=== PATIENT | male | born 1985 | race Caucasian/White ===

== ENCOUNTER 2016-10-08 15:05 | Emergency (ER) | payer OTHER ==
[~2016-10-08] VITALS: Ht 172.7 cm; Wt 86.9 kg
[~2016-10-08 15:05] MED LIST: BACLOFEN20 MG PO; BENZTROPINE ME0.5 MG PO; CLARITIN10 M3 PO; ESSENTIAL DAIL1 EACH PO; HALDOL1 MG PO; KEPPRA1000 MG PO; KEPPRA500 MG PO; MAALOX ADVANCE355 ML PO; MOBIC15 MG PO; NAPROSYN375 MG PO; NAPROSYN500 MG PO; NEURONTIN800 MG PO; NO HOME MEDS; PRILOSEC20 MG PO; VISTARIL25 MG PO; VISTARIL50 MG PO; [UNRECOGNIZED DRUG - OTHER] PO
[2016-10-08 16:23] LABS: EOSINOPHIL (%) 1.4 % (0-5); EOSINOPHIL COUNT 0.1 K/uL (0-0.3); HEMATOCRIT 44.3 % (38.0-50.0); IMMATURE GRANULOCYTE (%) 0.3 % (0.0-0.7); IMMATURE GRANULOCYTE COUNT 0.3 K/uL; LYMPHOCYTE COUNT 1.7 K/uL (1.0-2.8); MCH 30.3 PG (29.0-34.0); MCV 86.5 FL (86-99); MEAN PLAT.VOLUME 9.6 uM^3 (9.0-12.4); MONOCYTE (%) 6.6 % (3-12); MONOCYTE COUNT 0.6 K/uL (0-0.8); NEUTROPHIL (%) 74.1 % (45-76); NEUTROPHIL COUNT 7.2 K/uL (1.8-6.4); PLATELET COUNT 196 K/uL (156-360); RBC DIS.WIDTH-CV 13.5 % (11.8-14.6); RBC DIS.WIDTH-SD 41.6 % (39-53); RED BLOOD COUNT 5.12 M/uL (4.00-5.50); WHITE BLOOD COUNT 9.8 K/uL (4.1-10.2)
[2016-10-08 16:31] LABS: CHLORIDE 108 mEq/L (99-109); POTASSIUM 4.7 mEq/L (3.7-5.4); SODIUM 142 mEq/L (136-147)
[2016-10-08 16:33] LABS: GLUCOSE 94 mg/dL (70-99); INTER. NORMALIZED RATIO 1.1; PROTHROMBIN TIME 11.3 (9.2-11.2); PTT 24.5 (25-32)
[2016-10-08 16:34] LABS: ANION GAP 9 MEQ/L (2-14)
[2016-10-08 16:37] LABS: GFR ESTIMATE (CALCULATED) > 59 mL/min/
[2016-10-08 16:38] LABS: UREA NITROGEN (BUN) 14 mg/dL (9-23)
[2016-10-08] MEDS ORDERED: ASPIR-LOW81 MG PO (16:52)
[2016-10-08 17:21] VITALS: BP 127/84
== END 2016-10-08 17:22 ==
LOC: EME 15:05
PROVIDERS: Physician Assistant
DX: S93.401A Sprain of unspecified ligament of right ankle, initial encounter (principal); X50.9XXA Other and unspecified overexertion or strenuous movements or postures, initial encounter; Y92.143 Cell of prison as the place of occurrence of the external cause; Z87.891 Personal history of nicotine dependence
CPT/HCPCS: 73610; 80048; 85025; 85610; 85730; 99281; 99284; J1885

== ENCOUNTER 2016-11-12 09:07 | Emergency (ER) | payer OTHER ==
[~2016-11-12] VITALS: Ht 170.2 cm; Wt 97.5 kg
[~2016-11-12 09:07] MED LIST changes: +ASPIR-LOW81 MG PO
[2016-11-12 09:49] LABS: EOSINOPHIL (%) 1.9 % (0-5); EOSINOPHIL COUNT 0.1 K/uL (0-0.3); HEMATOCRIT 41.8 % (38.0-50.0); IMMATURE GRANULOCYTE (%) 0.8 % (0.0-0.7); IMMATURE GRANULOCYTE COUNT 0.1 K/uL; INSTRUMENT ABS NEUTROPHIL CT 4.2 K/uL; LYMPHOCYTE COUNT 1.2 K/uL (1.0-2.8); MCH 30.5 PG (29.0-34.0); MCHC 33.5 G/DL (30.0-36.0); MCV 91.1 FL (86-99); MEAN PLAT.VOLUME 9.8 uM^3 (9.0-12.4); MONOCYTE COUNT 0.6 K/uL (0-0.8); NEUTROPHIL (%) 67.9 % (45-76); NEUTROPHIL COUNT 4.2 K/uL (1.8-6.4); PLATELET COUNT 173 K/uL (156-360); RBC DIS.WIDTH-CV 12.9 % (11.8-14.6); RBC DIS.WIDTH-SD 42.4 % (39-53); RED BLOOD COUNT 4.59 M/uL (4.00-5.50); WHITE BLOOD COUNT 6.2 K/uL (4.1-10.2)
[2016-11-12] MEDS ORDERED: DEPAKOTE500 MG PO ×2 (10:06)
[2016-11-12] MEDS ORDERED: CATAPRES0.1 MG PO (10:07)
[2016-11-12] MEDS ORDERED: VISTARIL50 MG PO (10:07)
[2016-11-12] MEDS ORDERED: HALDOL5 MG PO (10:08)
[2016-11-12 10:24] LABS: CHLORIDE 110 mEq/L (99-109); POTASSIUM 4.4 mEq/L (3.7-5.4); SODIUM 144 mEq/L (136-147)
[2016-11-12 10:27] LABS: GLUCOSE 88 mg/dL (70-99)
[2016-11-12 10:28] LABS: ANION GAP 10 MEQ/L (2-14); TOTAL BILIRUBIN 0.2 mg/dL (0.0-1.0)
[2016-11-12 10:29] LABS: SERUM ETHYL ALCOHOL < 10 mg/dL
[2016-11-12 10:30] LABS: GFR ESTIMATE (CALCULATED) > 59 mL/min/
[2016-11-12 10:31] LABS: ALKALINE PHOSPHATASE 35 IU/L (3-129)
[2016-11-12 10:32] LABS: DIRECT BILIRUBIN 0.1 mg/dL (0.0-0.3); UREA NITROGEN (BUN) 8 mg/dL (9-23)
[2016-11-12 10:34] LABS: SALICYLATE < 5.0 MG/DL (15-30)
[2016-11-12 11:23] LABS: ADD MIUA? NO; BILIRUBIN NEGATIVE; BLOOD NEGATIVE; COLOR STRAW ((YELLOW)); GLUCOSE (STRIP) NEGATIVE; KETONES NEGATIVE; LEUKOCYTES NEGATIVE; NITRITE NEGATIVE; PROTEIN (STRIP) NEGATIVE; SPECIFIC GRAVITY 1.008 (1.000-1.030); UROBILINOGEN 0.2 MG/DL (0.2-1.0)
[2016-11-12 11:32] LABS: AMPHETAMINE NEGATIVE (500 ng/mL); BARBITURATES NEGATIVE (200 ng/mL); BENZODIAZEPINES NEGATIVE (150 ng/mL); COCAINE NEGATIVE (150 ng/mL); INTERNAL CONTROLS VALID? YES; METHADONE NEGATIVE (200 ng/mL); METHAMPHETAMINE NEGATIVE (500 ng/mL); OPIATES (MORPHINE) NEGATIVE (100 ng/mL); OXYCODONE NEGATIVE (100 ng/mL); PHENCYCLIDINE NEGATIVE (25 ng/mL); PROPOXYPHENE NEGATIVE (300 ng/mL); THC CANNABINOIDS NEGATIVE (50 ng/mL); TRICYCLIC ANTIDEPRESSANTS NEGATIVE (300 ng/mL)
[2016-11-12 14:13] VITALS: BP 127/89
== END 2016-11-12 14:16 ==
LOC: EME → EDBD 09:07 → EME 09:07
PROVIDERS: Emergency Medicine
DX: G40.909 Epilepsy, unspecified, not intractable, without status epilepticus (principal); Z87.891 Personal history of nicotine dependence
CPT/HCPCS: 70450; 71010; 80048; 80076; 80164; 81003; 85025; 93005; 99281; 99284; G0480; J2060

== ENCOUNTER 2016-12-13 08:46 | Emergency (ER) | payer OTHER ==
[~2016-12-13] VITALS: Ht 172.7 cm; Wt 93.0 kg
[~2016-12-13 08:46] MED LIST changes: +CATAPRES0.1 MG PO; +DEPAKOTE500 MG PO; +HALDOL5 MG PO
[2016-12-13 10:08] LABS: BASOPHIL COUNT 0.1 K/uL (0-0.1); EOSINOPHIL (%) 0.6 % (0-5); EOSINOPHIL COUNT 0.1 K/uL (0-0.3); HEMATOCRIT 41.9 % (38.0-50.0); IMMATURE GRANULOCYTE (%) 0.3 % (0.0-0.7); INSTRUMENT ABS NEUTROPHIL CT 7.1 K/uL; LYMPHOCYTE COUNT 1.8 K/uL (1.0-2.8); MCH 30.5 PG (29.0-34.0); MCHC 34.6 G/DL (30.0-36.0); MCV 88.2 FL (86-99); MEAN PLAT.VOLUME 9.3 uM^3 (9.0-12.4); MONOCYTE (%) 8.2 % (3-12); MONOCYTE COUNT 0.8 K/uL (0-0.8); NEUTROPHIL (%) 72.4 % (45-76); NEUTROPHIL COUNT 7.1 K/uL (1.8-6.4); PLATELET COUNT 197 K/uL (156-360); RBC DIS.WIDTH-CV 12.5 % (11.8-14.6); RBC DIS.WIDTH-SD 40.5 % (39-53); RED BLOOD COUNT 4.75 M/uL (4.00-5.50); WHITE BLOOD COUNT 9.8 K/uL (4.1-10.2)
[2016-12-13 10:12] LABS: ADD MIUA? NO; BILIRUBIN NEGATIVE; BLOOD NEGATIVE; COLOR YELLOW ((YELLOW)); GLUCOSE (STRIP) NEGATIVE; KETONES NEGATIVE; LEUKOCYTES NEGATIVE; NITRITE NEGATIVE; PROTEIN (STRIP) NEGATIVE; SPECIFIC GRAVITY 1.015 (1.000-1.030); UROBILINOGEN 0.2 MG/DL (0.2-1.0)
[2016-12-13 10:17] LABS: CHLORIDE 109 mEq/L (99-109); POTASSIUM 4.2 mEq/L (3.7-5.4); SODIUM 140 mEq/L (136-147)
[2016-12-13 10:19] LABS: GLUCOSE 90 mg/dL (70-99)
[2016-12-13 10:20] LABS: ANION GAP 11 MEQ/L (2-14)
[2016-12-13 10:22] LABS: SERUM ETHYL ALCOHOL < 10 mg/dL
[2016-12-13 10:23] LABS: GFR ESTIMATE (CALCULATED) > 59 mL/min/; UREA NITROGEN (BUN) 12 mg/dL (9-23)
[2016-12-13 10:35] LABS: AMPHETAMINE NEGATIVE (500 ng/mL); BARBITURATES NEGATIVE (200 ng/mL); BENZODIAZEPINES NEGATIVE (150 ng/mL); COCAINE NEGATIVE (150 ng/mL); INTERNAL CONTROLS VALID? YES; METHADONE NEGATIVE (200 ng/mL); METHAMPHETAMINE NEGATIVE (500 ng/mL); OPIATES (MORPHINE) NEGATIVE (100 ng/mL); OXYCODONE NEGATIVE (100 ng/mL); PHENCYCLIDINE NEGATIVE (25 ng/mL); PROPOXYPHENE NEGATIVE (300 ng/mL); THC CANNABINOIDS NEGATIVE (50 ng/mL); TRICYCLIC ANTIDEPRESSANTS NEGATIVE (300 ng/mL)
[2016-12-13 12:18] VITALS: BP 129/82
== END 2016-12-13 12:25 ==
LOC: EME → EDBD 08:46 → EME 08:46
PROVIDERS: Emergency Medicine
DX: T40.1X1A Poisoning by heroin, accidental (unintentional), initial encounter (principal); Z87.891 Personal history of nicotine dependence
CPT/HCPCS: 70450; 80048; 81003; 85025; 99281; 99283; G0480

== ENCOUNTER 2017-02-07 11:02 | Emergency (ER) | payer OTHER ==
[~2017-02-07] VITALS: Ht 172.7 cm; Wt 100.5 kg
[2017-02-07 11:39] LABS: EOSINOPHIL (%) 0.6 % (0-5); EOSINOPHIL COUNT 0.1 K/uL (0-0.3); HEMATOCRIT 44.1 % (38.0-50.0); IMMATURE GRANULOCYTE (%) 0.4 % (0.0-0.7); INSTRUMENT ABS NEUTROPHIL CT 6.8 K/uL; LYMPHOCYTE COUNT 1.4 K/uL (1.0-2.8); MCH 29.7 PG (29.0-34.0); MCHC 34.9 G/DL (30.0-36.0); MONOCYTE (%) 6.6 % (3-12); MONOCYTE COUNT 0.6 K/uL (0-0.8); NEUTROPHIL COUNT 6.8 K/uL (1.8-6.4); PLATELET COUNT 220 K/uL (156-360); RBC DIS.WIDTH-CV 11.1 % (11.8-14.6); RBC DIS.WIDTH-SD 34.3 % (39-53); RED BLOOD COUNT 5.19 M/uL (4.00-5.50)
[2017-02-07 11:48] LABS: CHLORIDE 108 mEq/L (99-109); POTASSIUM 4.1 mEq/L (3.7-5.4); SODIUM 139 mEq/L (136-147)
[2017-02-07 11:50] LABS: GLUCOSE 101 mg/dL (70-99)
[2017-02-07 11:51] LABS: ANION GAP 10 MEQ/L (2-14)
[2017-02-07 11:54] LABS: GFR ESTIMATE (CALCULATED) > 59 mL/min/
[2017-02-07 11:55] LABS: UREA NITROGEN (BUN) 10 mg/dL (9-23)
[2017-02-07 14:12] LABS: AMPHETAMINE NEGATIVE (500 ng/mL); BARBITURATES NEGATIVE (200 ng/mL); BENZODIAZEPINES NEGATIVE (150 ng/mL); COCAINE NEGATIVE (150 ng/mL); INTERNAL CONTROLS VALID? YES; METHADONE NEGATIVE (200 ng/mL); METHAMPHETAMINE NEGATIVE (500 ng/mL); OPIATES (MORPHINE) NEGATIVE (100 ng/mL); OXYCODONE NEGATIVE (100 ng/mL); PHENCYCLIDINE NEGATIVE (25 ng/mL); PROPOXYPHENE NEGATIVE (300 ng/mL); THC CANNABINOIDS NEGATIVE (50 ng/mL); TRICYCLIC ANTIDEPRESSANTS NEGATIVE (300 ng/mL)
[2017-02-07 14:13] LABS: ADD MIUA? NO; BILIRUBIN NEGATIVE; BLOOD NEGATIVE; COLOR STRAW ((YELLOW)); GLUCOSE (STRIP) NEGATIVE; KETONES NEGATIVE; LEUKOCYTES NEGATIVE; NITRITE NEGATIVE; PROTEIN (STRIP) NEGATIVE; SPECIFIC GRAVITY 1.009 (1.000-1.030); UROBILINOGEN 0.2 MG/DL (0.2-1.0)
[2017-02-07 16:19] VITALS: BP 132/94
== END 2017-02-07 16:27 ==
LOC: EME 11:02
PROVIDERS: Emergency Medicine
DX: G40.909 Epilepsy, unspecified, not intractable, without status epilepticus (principal); K21.9 Gastro-esophageal reflux disease without esophagitis; Z87.891 Personal history of nicotine dependence
CPT/HCPCS: 70450; 80048; 80164; 81003; 85025; 93005; 99281; 99285; J2060

== ENCOUNTER 2017-03-15 21:04 | Emergency (ER) | payer OTHER ==
[~2017-03-15] VITALS: Ht 172.7 cm; Wt 98.6 kg
[2017-03-15 21:51] LABS: HEMATOCRIT 41.8 % (38.0-50.0); MCH 28.7 PG (29.0-34.0); MCHC 34.4 G/DL (30.0-36.0); MCV 83.4 FL (86-99); MEAN PLAT.VOLUME 9.3 uM^3 (9.0-12.4); PLATELET COUNT 251 K/uL (156-360); RBC DIS.WIDTH-CV 11.9 % (11.8-14.6); RBC DIS.WIDTH-SD 35.6 % (39-53); RED BLOOD COUNT 5.01 M/uL (4.00-5.50); WHITE BLOOD COUNT 9.1 K/uL (4.1-10.2)
[2017-03-15 23:05] LABS: ANION GAP 13 MEQ/L (2-14); CHLORIDE 109 MEQ/L (99-109); SAMPLE HEMOLYSIS CHECK 0; SAMPLE ICTERIC CHECK 0; SAMPLE LIPEMIA CHECK 0; SODIUM 141 MEQ/L (136-147)
[2017-03-15 23:22] LABS: GFR ESTIMATE (CALCULATED) > 59 mL/min/; GLUCOSE 79 mg/dL (70-99); UREA NITROGEN (BUN) 14 mg/dL (9-23)
[2017-03-15 23:57] LABS: SERUM ETHYL ALCOHOL < 10 mg/dL
[2017-03-15 23:58] VITALS: BP 125/85
[2017-03-19] MEDS ORDERED: ZOFRAN ODT4 MG PO (13:24)
== END 2017-03-16 00:06 ==
LOC: EME 21:04
PROVIDERS: Emergency Medicine
DX: R10.9 Unspecified abdominal pain (principal); R45.851 Suicidal ideations; K21.9 Gastro-esophageal reflux disease without esophagitis; F32.9 Major depressive disorder, single episode, unspecified; Z87.891 Personal history of nicotine dependence
CPT/HCPCS: 71010; 74000; 80048; 85027; 93005; 99281; 99284; G0480

== ENCOUNTER → 2017-03-19 | Emergency (ER) | payer OTHER ==
[~2017-03-19] VITALS: Ht 172.7 cm; Wt 93.2 kg
[~2017-03-19] MED LIST changes: +ZOFRAN ODT4 MG PO
[2017-03-19 11:41] LABS: EOSINOPHIL (%) 0 % (0-5); HEMATOCRIT 45.4 % (38.0-50.0); IMMATURE GRANULOCYTE (%) 0.5 % (0.0-0.7); IMMATURE GRANULOCYTE COUNT 0.1 K/uL; INSTRUMENT ABS NEUTROPHIL CT 13.2 K/uL; LYMPHOCYTE COUNT 0.7 K/uL (1.0-2.8); MCH 28.2 PG (29.0-34.0); MCHC 33.9 G/DL (30.0-36.0); MEAN PLAT.VOLUME 9.6 uM^3 (9.0-12.4); MONOCYTE (%) 4.5 % (3-12); MONOCYTE COUNT 0.7 K/uL (0-0.8); NEUTROPHIL (%) 90.1 % (45-76); NEUTROPHIL COUNT 13.2 K/uL (1.8-6.4); PLATELET COUNT 311 K/uL (156-360); RBC DIS.WIDTH-SD 36.3 % (39-53); RED BLOOD COUNT 5.47 M/uL (4.00-5.50); WHITE BLOOD COUNT 14.6 K/uL (4.1-10.2)
[2017-03-19 11:50] LABS: CHLORIDE 106 mEq/L (99-109); POTASSIUM 3.7 mEq/L (3.7-5.4); SODIUM 140 mEq/L (136-147)
[2017-03-19 11:51] LABS: MAGNESIUM 1.8 mg/dL (1.3-2.7)
[2017-03-19 11:53] LABS: GLUCOSE 132 mg/dL (70-99)
[2017-03-19 11:54] LABS: ANION GAP 15 MEQ/L (2-14)
[2017-03-19 11:55] LABS: TOTAL BILIRUBIN 0.4 mg/dL (0.0-1.0)
[2017-03-19 11:56] LABS: ALKALINE PHOSPHATASE 40 IU/L (3-129); GFR ESTIMATE (CALCULATED) > 59 mL/min/
[2017-03-19 11:57] LABS: UREA NITROGEN (BUN) 9 mg/dL (9-23)
[2017-03-19 13:00] VITALS: BP 174/96
== END ==
LOC: EME 10:58
PROVIDERS: Emergency Medicine
DX: R11.2 Nausea with vomiting, unspecified (principal); R19.7 Diarrhea, unspecified; Z87.891 Personal history of nicotine dependence
CPT/HCPCS: 80053; 83735; 85025; 93005; 99281; 99284; J2405; J7030

== ENCOUNTER 2017-11-21 00:46 | Emergency (ER) | payer OTHER ==
[~2017-11-21] VITALS: Ht 172.7 cm; Wt 64.0 kg
[2017-11-21] MEDS ORDERED: TYLENOL W/COD1 COMB1 PO (00:59)
[2017-11-21] MEDS ORDERED: TEGRETOL200 MG PO (01:00)
[2017-11-21 01:42] VITALS: BP 115/67
[2017-11-22] MEDS ORDERED: ZOFRAN4 MG PO (07:48)
== END 2017-11-21 01:44 | disposition home or self-care (01) ==
LOC: EME 00:46
DX: F11.10 Opioid abuse, uncomplicated (principal); G40.909 Epilepsy, unspecified, not intractable, without status epilepticus; F17.200 Nicotine dependence, unspecified, uncomplicated
CPT/HCPCS: 99281; 99283

== ENCOUNTER 2017-11-21 12:34 | Emergency (ER) | payer OTHER ==
[~2017-11-21] VITALS: Ht 172.7 cm; Wt 83.6 kg
[~2017-11-21 12:34] MED LIST changes: +TEGRETOL200 MG PO; +TYLENOL W/COD1 COMB1 PO
[2017-11-21 13:11] LABS: BASOPHIL (%) 0.3 % (0-1); EOSINOPHIL (%) 0.1 % (0-5); HEMATOCRIT 46.9 % (38.0-50.0); HEMOGLOBIN 15.5 G/DL (12.5-16.6); IMMATURE GRANULOCYTE (%) 0.5 % (0.0-0.7); LYMPHOCYTE (%) 9.5 % (15-42); LYMPHOCYTE COUNT 1.4 K/uL (1.0-2.8); MCH 28.6 PG (29.0-34.0); MCV 86.5 FL (86-99); MONOCYTE (%) 7.2 % (3-12); MONOCYTE COUNT 1.1 K/uL (0-0.8); NEUTROPHIL (%) 82.4 % (45-76); NEUTROPHIL COUNT 12.1 K/uL (1.8-6.4); PLATELET COUNT 274 K/uL (156-360); RBC DIS.WIDTH-CV 13.8 % (11.8-14.6); RBC DIS.WIDTH-SD 43.4 % (39-53); RED BLOOD COUNT 5.42 M/uL (4.00-5.50); WHITE BLOOD COUNT 14.7 K/uL (4.1-10.2)
[2017-11-21 13:24] LABS: ALBUMIN 4.6 g/dL (3.2-4.8); CHLORIDE 104 mEq/L (99-109); POTASSIUM 3.8 mEq/L (3.7-5.4); SODIUM 139 mEq/L (136-147)
[2017-11-21 13:26] LABS: GLUCOSE 88 mg/dL (70-99); TOTAL PROTEIN 7.4 g/dL (6.4-8.3)
[2017-11-21 13:28] LABS: TOTAL BILIRUBIN 0.7 mg/dL (0.0-1.0)
[2017-11-21 13:29] LABS: SERUM ETHYL ALCOHOL < 10 mg/dL
[2017-11-21 13:30] LABS: CREATININE 1.2 mg/dL (0.6-1.3); GFR ESTIMATE (CALCULATED) > 59 mL/min/ (58.99-99999)
[2017-11-21 13:31] LABS: ALKALINE PHOSPHATASE 43 IU/L (3-129)
[2017-11-21 13:32] LABS: AST (GOT) 19 IU/L (2-34); UREA NITROGEN (BUN) 13 mg/dL (9-23)
[2017-11-21 13:33] LABS: SALICYLATE < 5.0 MG/DL (15-30)
[2017-11-21 13:34] LABS: ACETAMINOPHEN (TYLENOL) < 10 mcg/mL (10-30); ALT (GPT) 17 IU/L (3-49)
[2017-11-21 20:48] VITALS: BP 121/71
[2017-11-22] MEDS ORDERED: ZOFRAN4 MG PO (07:48)
== END 2017-11-21 20:52 | disposition home or self-care (01) ==
LOC: EME 12:34
PROVIDERS: Emergency Medicine
DX: T40.3X1A Poisoning by methadone, accidental (unintentional), initial encounter (principal); F32.9 Major depressive disorder, single episode, unspecified; F60.2 Antisocial personality disorder; F11.99 Opioid use, unspecified with unspecified opioid-induced disorder; F17.200 Nicotine dependence, unspecified, uncomplicated; K21.9 Gastro-esophageal reflux disease without esophagitis; F41.9 Anxiety disorder, unspecified; Z88.6 Allergy status to analgesic agent
CPT/HCPCS: 80053; 81003; 85025; 90839; 93005; 99281; 99285; G0480

== ENCOUNTER 2017-11-22 05:18 | Emergency (ER) | payer OTHER ==
[~2017-11-22] VITALS: Ht 172.7 cm; Wt 80.7 kg
[2017-11-22 06:26] LABS: HEMATOCRIT 47.4 % (38.0-50.0); HEMOGLOBIN 15.7 G/DL (12.5-16.6); MCH 28.2 PG (29.0-34.0); MCHC 33.1 G/DL (30.0-36.0); MCV 85.3 FL (86-99); PLATELET COUNT 283 K/uL (156-360); RBC DIS.WIDTH-SD 43.9 % (39-53); RED BLOOD COUNT 5.56 M/uL (4.00-5.50); WHITE BLOOD COUNT 13.9 K/uL (4.1-10.2)
[2017-11-22 06:38] LABS: CHLORIDE 104 mEq/L (99-109); SODIUM 141 mEq/L (136-147)
[2017-11-22 06:43] LABS: GLUCOSE 114 mg/dL (70-99); SERUM ETHYL ALCOHOL < 10 mg/dL
[2017-11-22 06:44] LABS: CREATININE 1.3 mg/dL (0.6-1.3); GFR ESTIMATE (CALCULATED) > 59 mL/min/ (58.99-99999)
[2017-11-22 06:45] LABS: UREA NITROGEN (BUN) 19 mg/dL (9-23)
[2017-11-22 07:23] LABS: CARBAMAZEPINE (TEGRETOL) < 2.0 MCG/ML (4.0-12.0)
[2017-11-22] MEDS ORDERED: ZOFRAN4 MG PO (07:48)
[2017-11-22 09:21] VITALS: BP 126/69
== END 2017-11-22 09:20 | disposition home or self-care (01) ==
LOC: EME 05:18
PROVIDERS: Emergency Medicine
DX: G40.909 Epilepsy, unspecified, not intractable, without status epilepticus (principal); R11.2 Nausea with vomiting, unspecified; K21.9 Gastro-esophageal reflux disease without esophagitis; F17.200 Nicotine dependence, unspecified, uncomplicated; F32.9 Major depressive disorder, single episode, unspecified; F41.9 Anxiety disorder, unspecified; Z88.6 Allergy status to analgesic agent
CPT/HCPCS: 80048; 80156; 85027; 99281; 99285; G0480; J2405; J7030

== ENCOUNTER 2018-01-31 23:37 | Emergency (ER) | payer OTHER ==
[~2018-01-31] VITALS: Ht 172.7 cm; Wt 75.1 kg
[~2018-01-31 23:37] MED LIST changes: +ZOFRAN4 MG PO
[2018-01-31 23:57] VITALS: BP 142/99
== END 2018-02-01 01:09 | disposition left against medical advice (07) ==
LOC: EME 23:37
DX: F41.9 Anxiety disorder, unspecified (principal); G43.909 Migraine, unspecified, not intractable, without status migrainosus; Z53.21 Procedure and treatment not carried out due to patient leaving prior to being seen by health care provider

== ENCOUNTER 2018-02-12 19:07 | Emergency (ER) | payer OTHER ==
[~2018-02-12] VITALS: Ht 172.7 cm; Wt 75.6 kg
[2018-02-12] MEDS ORDERED: VISTARIL25 MG PO (20:42)
[2018-02-12] MEDS ORDERED: VOLTAREN75 MG PO (20:43)
[2018-02-12 21:10] VITALS: BP 95/65
== END 2018-02-12 21:11 | disposition home or self-care (01) ==
LOC: EME 19:07
DX: M79.641 Pain in right hand (principal); G89.29 Other chronic pain; F41.9 Anxiety disorder, unspecified; Z88.6 Allergy status to analgesic agent; Z88.8 Allergy status to other drugs, medicaments and biological substances
CPT/HCPCS: 73130; 99281; 99284; Q0177

== ENCOUNTER 2018-04-29 16:38 | Emergency (ER) | payer OTHER ==
[~2018-04-29] VITALS: Ht 172.7 cm; Wt 72.2 kg
[~2018-04-29 16:38] MED LIST changes: +VOLTAREN75 MG PO
[2018-04-29] MEDS ORDERED: KLONOPIN0.5 M1 PO (17:46)
[2018-04-29 17:58] LABS: HEMATOCRIT 37.7 % (38.0-50.0); HEMOGLOBIN 12.6 G/DL (12.5-16.6); MCH 29.9 PG (29.0-34.0); MCHC 33.4 G/DL (30.0-36.0); MCV 89.3 FL (86-99); PLATELET COUNT 189 K/uL (156-360); RBC DIS.WIDTH-CV 14.7 % (11.8-14.6); RBC DIS.WIDTH-SD 48.7 % (39-53); RED BLOOD COUNT 4.22 M/uL (4.00-5.50)
[2018-04-29 18:09] LABS: CHLORIDE 108 mEq/L (99-109); POTASSIUM 3.9 mEq/L (3.7-5.4); SODIUM 139 mEq/L (136-147)
[2018-04-29 18:11] LABS: GLUCOSE 76 mg/dL (70-99)
[2018-04-29 18:15] LABS: CREATININE 1.1 mg/dL (0.6-1.3); GFR ESTIMATE (CALCULATED) > 59 mL/min/ (58.99-99999)
[2018-04-29 18:16] LABS: UREA NITROGEN (BUN) 13 mg/dL (9-23)
[2018-04-29 18:54] VITALS: BP 143/81
== END 2018-04-29 18:56 | disposition home or self-care (01) ==
LOC: EME 16:38
PROVIDERS: Emergency Medicine Emergency Medical Services
DX: G40.909 Epilepsy, unspecified, not intractable, without status epilepticus (principal); G44.209 Tension-type headache, unspecified, not intractable; M79.1 Myalgia; F32.9 Major depressive disorder, single episode, unspecified; T42.4X6A Underdosing of benzodiazepines, initial encounter; Z91.128 Patient's intentional underdosing of medication regimen for other reason; F41.9 Anxiety disorder, unspecified; F90.9 Attention-deficit hyperactivity disorder, unspecified type; K21.9 Gastro-esophageal reflux disease without esophagitis; F17.200 Nicotine dependence, unspecified, uncomplicated; Z88.6 Allergy status to analgesic agent; Z88.8 Allergy status to other drugs, medicaments and biological substances
CPT/HCPCS: 80048; 85027; 99281; 99285; J2060; J7030

== ENCOUNTER 2018-05-01 16:35 | Emergency (ER) | payer OTHER ==
[~2018-05-01] VITALS: Ht 172.7 cm; Wt 71.9 kg
[~2018-05-01 16:35] MED LIST changes: +KLONOPIN0.5 M1 PO
[2018-05-01] MEDS ORDERED: KLONOPIN0.5 M1 PO (17:00)
[2018-05-01] MEDS ORDERED: CATAPRES0.1 MG PO (17:00)
[2018-05-01 17:13] VITALS: BP 113/68
== END 2018-05-01 17:17 | disposition home or self-care (01) ==
LOC: EME 16:35
DX: G40.909 Epilepsy, unspecified, not intractable, without status epilepticus (principal); F41.9 Anxiety disorder, unspecified; Z76.0 Encounter for issue of repeat prescription; Z59.0 Homelessness; F17.200 Nicotine dependence, unspecified, uncomplicated
CPT/HCPCS: 99281; 99283

== ENCOUNTER 2018-05-01 23:53 | Emergency (ER) | payer OTHER ==
[~2018-05-01] VITALS: Ht 172.7 cm; Wt 70.7 kg
[2018-05-02 00:55] VITALS: BP 109/80
== END 2018-05-02 00:56 | disposition home or self-care (01) ==
LOC: EME → EDBD 23:53 → EME 05-02 00:56
DX: G40.89 Other seizures (principal); K21.9 Gastro-esophageal reflux disease without esophagitis; F41.9 Anxiety disorder, unspecified; F32.9 Major depressive disorder, single episode, unspecified; F17.200 Nicotine dependence, unspecified, uncomplicated; Z86.69 Personal history of other diseases of the nervous system and sense organs; Z91.012 Allergy to eggs; Z88.6 Allergy status to analgesic agent; Z88.8 Allergy status to other drugs, medicaments and biological substances
CPT/HCPCS: 99281; 99283; J2060